=== PATIENT | male | born 1950 | race Caucasian/White ===

== ENCOUNTER 2016-11-05 13:08 | Emergency (ER) | payer MEDICARE ==
[~2016-11-05] VITALS: Ht 175.3 cm; Wt 117.9 kg
[2016-11-05] MEDS ORDERED: PROM5SYR PO (13:18)
[2016-11-05] MEDS ORDERED: LORA10TA50 PO (13:18)
[2016-11-05] MEDS ORDERED: LEVO750T21 PO (13:18)
[2016-11-05] MEDS ORDERED: BENA20TA2 PO (13:18)
[2016-11-05] MEDS ORDERED: ALBU8.5H2 IH (13:18)
--- NOTE | 2016-11-05 13:57 | NUR ---
PT OIS IN BED #2B. DR DOMINIQUE EVALUATED THE PT.
--- NOTE | 2016-11-05 15:53 | NUR ---
Patient discharged to home in stable conditon. Written and verbal after care instructions given. Patient verbalizes understanding of instructions.
[2016-11-05 15:54] VITALS: BP 141/71
== END 2016-11-05 15:54 | disposition home or self-care (01) ==
LOC: ER 13:18
DX: J40 Bronchitis, not specified as acute or chronic (principal); I10 Essential (primary) hypertension
CPT/HCPCS: 71020; 93005; 99284; A4663